=== PATIENT | male | born 1975 | race Caucasian/White ===

== ENCOUNTER 2017-12-22 06:58 | Emergency (ER) | payer BC ==
[2017-12-22] MEDS ORDERED: KETOROLAC 30 MG/ML INJ ONE (07:19)
--- NOTE | 2017-12-22 07:20 | ER ---
Nurse's Notes [facility] Name: Parrish Busby Age: 42 yrs Sex: Male : 1975 Arrival Date: 12/22/2017 Time: 06:59 Bed 6 Private MD: Diagnosis: Myalgia Presentation: 12/22 07:11 Presenting complaint: Patient states: R sided back pain that began this morning after ss taking out the trash that was heavy. Transition of care: patient was not received from another setting of care. Onset of symptoms was December 22, 2017. Risk Assessment: Do you want to hurt yourself or someone else? Patient reports no desire to harm self or others. Initial Sepsis Screen: Does the patient meet any 2 criteria? No. Patient's initial sepsis screen is negative. Does the patient have a suspected source of infection? No. Patient's initial sepsis screen is negative. Note Pt states, "I have scoliosis and I didn't want to just go straight to work this morning without getting checked out.". Care prior to arrival: None. 07:11 Method Of Arrival: Ambulatory ss 07:11 Acuity: ANDREW 4 ss Historical: - Allergies: 07:13 PENICILLINS; ss - Home Meds: 07:13 None [Active]; ss - PMHx: 07:13 scoliosis; ss - PSHx: 07:13 None; ss - Immunization history:: Adult Immunizations unknown. - Social history:: Smoking status: Patient uses tobacco products, smokes one-half pack cigarettes per day. - Ebola Screening: : Patient denies exposure to infectious person Patient denies travel to an Ebola-affected area in the 21 days before illness onset. Screenin:14 Abuse screen: Denies threats or abuse. Denies injuries from another. Nutritional ss screening: No deficits noted. Tuberculosis screening: Never had TB. Fall Risk None identified. Assessment: 07:14 General: Appears in no apparent distress. comfortable, Behavior is calm, cooperative. ss Pain: Complains of pain in right scapular area, right subscapular area, right mid back and right low back Pain currently is 8 out of 10 on a pain scale. Quality of pain is described as aching, sharp, tender, Pain began this morning after heavy lifting Is continuous, Aggravated by increased activity, repositioning. Neuro: Level of Consciousness is awake, alert, obeys commands, Oriented to person, place, time, situation, Speech is normal, Pupils are. Cardiovascular: Capillary refill < 3 seconds is brisk in bilateral fingers Patient's skin is warm and dry. Respiratory: Airway is patent Respiratory effort is even, unlabored, Respiratory pattern is regular, symmetrical, Breath sounds are clear bilaterally. GI: Patient currently denies abdominal pain, diarrhea, nausea, vomiting. : No signs and/or symptoms were reported regarding the genitourinary system. EENT: Nares are clear Oral mucosa is moist. Throat is clear. Derm: Skin is intact, is healthy with good turgor, Skin is dry, Skin is pink, warm \\T\\ dry. normal. Musculoskeletal: Circulation, motion, and sensation intact. Capillary refill < 3 seconds, is brisk, in bilateral fingers. Range of motion: intact in all extremities, Swelling absent Denies. Vital Signs: 07:13 BP 134 / 84; Pulse 89; Resp 16; Temp 98.9(TE); Pulse Ox 100% on R/A; Weight 61.23 kg; ss Height 5 ft. 7 in. (170.18 cm); Pain 8/10; 07:13 Body Mass Index 21.14 (61.23 kg, 170.18 cm) ss ED Course: 06:59 Patient arrived in ED. am2 07:06 Orquidea Rodríguez FNP-C is [facility]. kb 07:06 Nico Collins MD is Attending Physician. kb 07:12 Triage completed. ss 07:13 Arm band placed on right wrist. ss 07:14 Jaja Harmon, KAMALJIT is Primary Nurse. ss 07:14 Patient has correct armband on for positive identification. Bed in low position. Call ss light in reach. 07:24 No provider procedures requiring assistance completed. Patient did not have IV access ss during this emergency room visit. Administered Medications: 07:19 Drug: TORadol 60 mg Route: IM; Site: left gluteus; ss 07:32 Follow up: Response: No adverse reaction ss Outcome: 07:19 Discharge ordered by . kb 07:24 Condition: good ss 07:24 Discharge instructions given to patient, Instructed on discharge instructions, follow up and referral plans. medication usage, Demonstrated understanding of instructions, follow-up care, medications, Prescriptions given X 1. 07:33 Discharged to home ambulatory. ss 07:33 Patient left the ED. ss Signatures: Orquidea Rodríguez, GRAPHIC MANAGER-C GRAPHIC MANAGER-Ckb Jaja Harmon, RN RN ss Chery Stevens
--- NOTE | 2017-12-22 07:20 | EDPHYS ---
Physician Documentation [facility] Name: Parrish Busby Age: 42 yrs Sex: Male : 1975 Arrival Date: 12/22/2017 Time: 06:59 Bed 6 Private MD: ED Physician Nico Collins HPI: 12/22 07:12 This 42 yrs old Male presents to ER via Ambulatory with complaints of Back kb Pain. 07:12 The patient presents with pain that is acute. The symptoms are located in the right kb trapezius, right mid back and right low back. Onset: The symptoms/episode began/occurred this morning, at 04:30. The pain does not radiate. Associated signs and symptoms: The patient has no apparent associated signs or symptoms. The problem was sustained when lifting trash. Modifying factors: The patient symptoms are alleviated by nothing, the patient symptoms are aggravated by movement. Severity of symptoms: At their worst the symptoms were mild, in the emergency department the symptoms are unchanged. The patient has not experienced similar symptoms in the past. The patient has not recently seen a physician. States he was taking out the trash and started having back pain afterwards. Worse when he moves in certain directions so he didn't want to go to work and injure it more. . Historical: - Allergies: 07:13 PENICILLINS; ss - Home Meds: 07:13 None [Active]; ss - PMHx: 07:13 scoliosis; ss - PSHx: 07:13 None; ss - Immunization history:: Adult Immunizations unknown. - Social history:: Smoking status: Patient uses tobacco products, smokes one-half pack cigarettes per day. - Ebola Screening: : Patient denies exposure to infectious person Patient denies travel to an Ebola-affected area in the 21 days before illness onset. ROS: 07:12 Constitutional: Negative for fever, chills, and weight loss, Cardiovascular: Negative kb for chest pain, palpitations, and edema, Respiratory: Negative for shortness of breath, cough, wheezing, and pleuritic chest pain, Abdomen/GI: Negative for abdominal pain, nausea, vomiting, diarrhea, and constipation, : Negative for injury, bleeding, discharge, and swelling, MS/Extremity: Negative for injury and deformity, Skin: Negative for injury, rash, and discoloration, Neuro: Negative for headache, weakness, numbness, tingling, and seizure. 07:12 Back: Positive for pain at rest, pain with movement. Exam: 07:12 Constitutional: This is a well developed, well nourished patient who is awake, alert, kb and in no acute distress. Head/Face: Normocephalic, atraumatic. Chest/axilla: Normal chest wall appearance and motion. Nontender with no deformity. No lesions are appreciated. Cardiovascular: Regular rate and rhythm with a normal S1 and S2. No gallops, murmurs, or rubs. Normal PMI, no JVD. No pulse deficits. Respiratory: Lungs have equal breath sounds bilaterally, clear to auscultation and percussion. No rales, rhonchi or wheezes noted. No increased work of breathing, no retractions or nasal flaring. Abdomen/GI: Soft, non-tender, with normal bowel sounds. No distension or tympany. No guarding or rebound. No evidence of tenderness throughout. Skin: Warm, dry with normal turgor. Normal color with no rashes, no lesions, and no evidence of cellulitis. MS/ Extremity: Pulses equal, no cyanosis. Neurovascular intact. Full, normal range of motion. Neuro: Awake and alert, GCS 15, oriented to person, place, time, and situation. Cranial nerves II-XII grossly intact. Motor strength 5/5 in all extremities. Sensory grossly intact. Cerebellar exam normal. Normal gait. 07:12 Back: pain, that is mild, that is moderate, of the right trapezius, right mid back and right low back, ROM is normal. Vital Signs: 07:13 BP 134 / 84; Pulse 89; Resp 16; Temp 98.9(TE); Pulse Ox 100% on R/A; Weight 61.23 kg; ss Height 5 ft. 7 in. (170.18 cm); Pain 8/10; 07:13 Body Mass Index 21.14 (61.23 kg, 170.18 cm) ss MDM: 07:06 Patient medically screened. kb 07:12 Data reviewed: vital signs, nurses notes. Data interpreted: Pulse oximetry: on room air kb is 100 %. Interpretation: normal. Counseling: I had a detailed discussion with the patient and/or guardian regarding: the historical points, exam findings, and any diagnostic results supporting the discharge/admit diagnosis, the need for outpatient follow up, a family practitioner, to return to the emergency department if symptoms worsen or persist or if there are any questions or concerns that arise at home. Administered Medications: 07:19 Drug: TORadol 60 mg Route: IM; Site: left gluteus; ss 07:32 Follow up: Response: No adverse reaction ss Disposition: 12/22/17 07:19 Discharged to Home. Impression: Myalgia. - Condition is Stable. - Discharge Instructions: Muscle Pain, Adult. - Prescriptions for orphenadrine citrate 100 mg Oral Tablet Sustained Release - take 1 tablet by ORAL route 2 times per day As needed; 20 tablet. - Work release form, Medication Reconciliation Form, Thank You Letter, Antibiotic Education, Prescription Opioid Use form. - Follow up: Emergency Department; When: As needed; Reason: Worsening of condition. Follow up: Private Physician; When: 2 - 3 days; Reason: Recheck today's complaints, Continuance of care, Re-evaluation by your physician. Addendum: 12/26/2017 15:31 Co-signature as Attending Physician, Nico Collins MD. g s Signatures: Orquidea Rodríguez, CASSANDRA-C CASSANDRA-Jaja Lara RN RN Nico Ryan MD MD Corrections: (The following items were deleted from the chart) 12/22 07:33 07:19 12/22/2017 07:19 Discharged to Home. Impression: Myalgia. Condition is Stable. ss Forms are Medication Reconciliation Form, Thank You Letter, Antibiotic Education, Prescription Opioid Use. Follow up: Emergency Department; When: As needed; Reason: Worsening of condition. Follow up: Private Physician; When: 2 - 3 days; Reason: Recheck today's complaints, Continuance of care, Re-evaluation by your physician. kb
[2017-12-22 07:37] VITALS: BP 134/84; TEMP 98.9; O2SAT 100
== END 2017-12-22 07:33 | disposition home or self-care (01) ==
LOC: ER 06:58
DX: M79.1 Myalgia (principal); F17.210 Nicotine dependence, cigarettes, uncomplicated; Z88.0 Allergy status to penicillin
CPT/HCPCS: 96372; 99283

== ENCOUNTER 2018-01-18 13:35 | Emergency (ER) | payer BC ==
[2018-01-18] MEDS ORDERED: CYCLOBENZAPRINE 10 MG TAB ONE (14:28)
[2018-01-18] MEDS ORDERED: HYDROCODONE/APAP 7.5/325 MG TAB ONE (14:29)
--- NOTE | 2018-01-18 15:07 | RAD REPORT ---
EXAM DESCRIPTION: RAD - Lumbar Spine 3 Views - 01/18/2018 2:59 pm CLINICAL HISTORY: PAIN Radiculopathy COMPARISON: No comparisons FINDINGS: Vertebral body heights appear maintained. No compression fracture noted. Disc spaces are m aintained. No spondylolysis or spondylolisthesis. Mild levoscoliosis is seen involving the lumbar spine. IMPRESSION: Mild lumbar spine levoscoliosis.
--- NOTE | 2018-01-18 16:03 | EDPHYS ---
Physician Documentation [facility] Name: Parrish Busby Age: 43 yrs Sex: Male : 1975 Arrival Date: 01/18/2018 Time: 13:39 Bed 28 Private MD: None, None ED Physician Thalia Talavera HPI: 01/18 14:21 This 43 yrs old Male presents to ER via Ambulatory with complaints of Low ma2 Back Pain. 14:21 The patient presents with pain that is chronic, with no known mechanism of injury. The ma2 symptoms are located in the low back. The pain does not radiate. Onset: The symptoms/episode began/occurred suddenly, gradually, 1 day(s) ago. Associated signs and symptoms: Pertinent negatives: abdominal pain, chest pain, constipation, dysuria, fever, headache, hematuria, incontinence, nausea, numbness, tingling, urinary retention, vomiting, weakness. Severity of symptoms: At their worst the symptoms were moderate, declined IM pain medicine . The patient has experienced similar episodes in the past. Historical: - Allergies: 13:55 PENICILLINS; iw - Home Meds: 13:55 muscle relaxer [Active]; iw - PMHx: 13:55 genital warts; scoliosis; iw - PSHx: 13:55 None; iw - Immunization history:: Adult Immunizations up to date. - Social history:: Smoking status: Patient uses tobacco products, smokes one-half pack cigarettes per day, Patient/guardian denies using alcohol, street drugs, The patient lives with family. - Ebola Screening: : Patient negative for fever greater than or equal to 101.5 degrees Fahrenheit, and additional compatible Ebola Virus Disease symptoms Patient denies exposure to infectious person Patient denies travel to an Ebola-affected area in the 21 days before illness onset No symptoms or risks identified at this time. - Family history:: not pertinent. ROS: 14:21 Constitutional: Negative for fever, chills, and weight loss, ENT: Negative for injury, ma2 pain, and discharge, Cardiovascular: Negative for chest pain, palpitations, and edema, Respiratory: Negative for shortness of breath, cough, wheezing, and pleuritic chest pain, : Negative for injury, bleeding, discharge, and swelling, Skin: Negative for injury, rash, and discoloration, Neuro: Negative for headache, weakness, numbness, tingling, and seizure. 14:21 Back: Positive for pain with movement, Negative for injury or acute deformity, decreased range of motion, acute changes. 14:21 MS/extremity: Positive for 14:21 MS/extremity: Negative for acute changes, injury or acute deformity. 14:21 All other systems are negative. ma2 Exam: 14:21 Constitutional: This is a well developed, well nourished patient who is awake, alert, ma2 and in no acute distress. Head/Face: Normocephalic, atraumatic. Cardiovascular: Regular rate and rhythm with a normal S1 and S2. No gallops, murmurs, or rubs. Normal PMI, no JVD. No pulse deficits. Respiratory: Lungs have equal breath sounds bilaterally, clear to auscultation and percussion. No rales, rhonchi or wheezes noted. No increased work of breathing, no retractions or nasal flaring. Abdomen/GI: Soft, non-tender, with normal bowel sounds. No distension or tympany. No guarding or rebound. No evidence of tenderness throughout. Back: No spinal tenderness. No costovertebral tenderness. Full range of motion. 14:21 Skin: Warm, dry with normal turgor. Normal color with no rashes, no lesions, and no evidence of cellulitis. MS/ Extremity: Pulses equal, no cyanosis. Neurovascular intact. Full, normal range of motion. Neuro: Awake and alert, GCS 15, oriented to person, place, time, and situation. Cranial nerves II-XII grossly intact. Motor strength 5/5 in all extremities. Sensory grossly intact. Cerebellar exam normal. Normal gait. 14:21 Back: Straight leg raises: pain bilaterally. Vital Signs: 13:55 BP 139 / 80; Pulse 96; Resp 16; Temp 98.2; Pulse Ox 99% on R/A; Weight 61.23 kg; Height iw 5 ft. 7 in. (170.18 cm); Pain 8/10; 14:14 BP 111 / 70; Pulse 73; Resp 17; Pulse Ox 99% on R/A; kr2 13:55 Body Mass Index 21.14 (61.23 kg, 170.18 cm) iw MDM: 14:02 Patient medically screened. ma2 14:21 Differential diagnosis: arthritis, strain, fracture, sciatica, Herniated disc. Data ma2 reviewed: vital signs, nurses notes, EMS record, radiologic studies. Counseling: I had a detailed discussion with the patient and/or guardian regarding: the historical points, exam findings, and any diagnostic results supporting the discharge/admit diagnosis, the presence of at least one elevated blood pressure reading (>120/80) during this emergency department visit, the need for outpatient follow up. Response to treatment: the patient's symptoms have markedly improved after treatment. 01/18 14:21 Order name: Lumbar Spine (3 Views) XRAY; Complete Time: 15:48 ma2 Administered Medications: 14:25 Drug: Flexeril 10 mg Route: PO; kr2 15:22 Follow up: Response: No adverse reaction; Pain is decreased kr2 14:25 Drug: [place] (7.5 mg-325 mg) 1 tabs Route: PO; kr2 15:22 Follow up: Response: No adverse reaction; Pain is decreased kr2 Disposition: 01/18/18 15:55 Discharged to Home. Impression: Low back pain. - Condition is Stable. - Discharge Instructions: Back Pain, Adult. - Prescriptions for Tylenol- Codeine #3 300-30 mg Oral Tablet - take 2 tablet by ORAL route every 6 hours As needed; 30 tablet. Cyclobenzaprine 5 mg Oral Tablet - take 1 tablet by ORAL route 3 times per day As needed; 15 tablet. - Work release form, Medication Reconciliation Form, Thank You Letter, Antibiotic Education, Prescription Opioid Use form. - Follow up: Private Physician; When: Tomorrow; Reason: Continuance of care. - Problem is new. - Symptoms have improved. Signatures: Dispatcher [employer] EDMS Moraima Rosa RN RN Kiersten Peterson RN RN kr2 Thalia Talavera MD MD ma2 Corrections: (The following items were deleted from the chart) 16:11 15:55 01/18/2018 15:55 Discharged to Home. Impression: Low back pain. Condition is kr2 Stable. Forms are Medication Reconciliation Form, Thank You Letter, Antibiotic Education, Prescription Opioid Use. Follow up: Private Physician; When: Tomorrow; Reason: Continuance of care. Problem is new. Symptoms have improved. ma2
--- NOTE | 2018-01-18 16:03 | ER ---
Nurse's Notes [facility] Name: Parrish Busby Age: 43 yrs Sex: Male : 1975 Arrival Date: 01/18/2018 Time: 13:39 Bed 28 Private MD: None, None Diagnosis: Low back pain Presentation: 01/18 13:51 Presenting complaint: Patient states: has hx of scoliosis, woke up with sharp lower iw back pain above his tailbone, denies injury, pain feels different than his scoliosis pain, aggravated by movement. Transition of care: patient was not received from another setting of care. Onset of symptoms was January 18, 2018. Risk Assessment: Do you want to hurt yourself or someone else? Patient reports no desire to harm self or others. Initial Sepsis Screen: Does the patient meet any 2 criteria? No. Patient's initial sepsis screen is negative. Does the patient have a suspected source of infection? No. Patient's initial sepsis screen is negative. Care prior to arrival: None. 13:51 Method Of Arrival: Ambulatory iw 13:51 Acuity: ANDREW 4 iw Historical: - Allergies: 13:55 PENICILLINS; iw - Home Meds: 13:55 muscle relaxer [Active]; iw - PMHx: 13:55 genital warts; scoliosis; iw - PSHx: 13:55 None; iw - Immunization history:: Adult Immunizations up to date. - Social history:: Smoking status: Patient uses tobacco products, smokes one-half pack cigarettes per day, Patient/guardian denies using alcohol, street drugs, The patient lives with family. - Ebola Screening: : Patient negative for fever greater than or equal to 101.5 degrees Fahrenheit, and additional compatible Ebola Virus Disease symptoms Patient denies exposure to infectious person Patient denies travel to an Ebola-affected area in the 21 days before illness onset No symptoms or risks identified at this time. - Family history:: not pertinent. Screenin:13 Abuse screen: Denies threats or abuse. Denies injuries from another. Nutritional kr2 screening: No deficits noted. Tuberculosis screening: No symptoms or risk factors identified. Fall Risk None identified. Assessment: 14:10 General: Appears in no apparent distress. comfortable, well groomed, well developed, kr2 well nourished, Behavior is calm, cooperative, appropriate for age. Pain: Complains of pain in coccyx Pain does not radiate. Pain currently is 5 out of 10 on a pain scale. Quality of pain is described as sharp, stabbing, Pain began this morning Is continuous, Alleviated by rest, Aggravated by increased activity. Neuro: Level of Consciousness is awake, alert, obeys commands, Oriented to person, place, time, situation, Appropriate for age Reheater Helper are equal bilaterally Moves all extremities. Intact. Cardiovascular: Capillary refill < 3 seconds in bilateral fingers Patient's skin is warm and dry. Respiratory: Airway is patent Respiratory effort is even, unlabored, Respiratory pattern is regular, symmetrical. GI: Abdomen is flat, non-distended, Reports normal bowel habits. : Denies inability to void, incontinence. EENT: Oral mucosa is moist. Derm: Skin is intact, is healthy with good turgor, Skin is pink, warm \T\ dry. Musculoskeletal: Circulation, motion, and sensation intact. 15:18 Reassessment: Patient appears in no apparent distress at this time. Patient and/or kr2 family updated on plan of care and expected duration. Pain level reassessed. Patient is alert, oriented x 3, equal unlabored respirations, skin warm/dry/pink. Patient states he is only feeling the pain when he moves certain ways. Vital Signs: 13:55 BP 139 / 80; Pulse 96; Resp 16; Temp 98.2; Pulse Ox 99% on R/A; Weight 61.23 kg; Height iw 5 ft. 7 in. (170.18 cm); Pain 8/10; 14:14 BP 111 / 70; Pulse 73; Resp 17; Pulse Ox 99% on R/A; kr2 13:55 Body Mass Index 21.14 (61.23 kg, 170.18 cm) iw ED Course: 13:39 Patient arrived in ED. mr 13:39 None, None is Private Physician. mr 13:54 Triage completed. iw 13:55 Arm band placed on. iw 14:01 Thalia Talavera MD is Attending Physician. ma2 14:10 Kiersten Peterson, KAMALJIT is Primary Nurse. kr2 14:13 Patient has correct armband on for positive identification. Bed in low position. Call kr2 light in reach. Side rails up X 1. Pulse ox on. NIBP on. Door closed. Head of bed elevated. 14:59 Lumbar Spine (3 Views) XRAY In Process Unspecified. EDMS 16:10 No provider procedures requiring assistance completed. Patient did not have IV access kr2 during this emergency room visit. Administered Medications: 14:25 Drug: Flexeril 10 mg Route: PO; kr2 15:22 Follow up: Response: No adverse reaction; Pain is decreased kr2 14:25 Drug: [place] (7.5 mg-325 mg) 1 tabs Route: PO; kr2 15:22 Follow up: Response: No adverse reaction; Pain is decreased kr2 Outcome: 15:55 Discharge ordered by . ma2 16:10 Discharged to home ambulatory, with family. kr2 16:10 Condition: good 16:10 Discharge instructions given to patient, Instructed on discharge instructions, follow up and referral plans. medication usage, Demonstrated understanding of instructions, follow-up care, medications, Prescriptions given X 2. 16:11 Patient left the ED. kr2 Signatures: Dispatcher [employer] EDNE Margaret Galeana mr Moraima Rosa RN RN iw Kiersten Peterson RN RN kr2 Thalia Talavera MD MD ma2 Corrections: (The following items were deleted from the chart) 15:21 15:18 Reassessment: Patient appears in no apparent distress at this time. Patient kr2 and/or family updated on plan of care and expected duration. Pain level reassessed. Patient is alert, oriented x 3, equal unlabored respirations, skin warm/dry/pink. kr2
[2018-01-18 16:37] VITALS: TEMP 98.2; O2SAT 99
[2018-01-18 16:38] VITALS: BP 111/70
== END 2018-01-18 16:11 | disposition home or self-care (01) ==
LOC: ER 13:35
DX: M54.5 Low back pain (principal); F17.210 Nicotine dependence, cigarettes, uncomplicated; Z88.0 Allergy status to penicillin
CPT/HCPCS: 72100; 99284

== ENCOUNTER 2018-04-10 06:17 | Emergency (ER) | payer BC, SELFPAY ==
[2018-04-10] MEDS ORDERED: KETOROLAC 30 MG/ML INJ ONE (06:44)
--- NOTE | 2018-04-10 07:04 | ER ---
Nurse's Notes [facility] Name: Parrish Busby Age: 43 yrs Sex: Male : 1975 Arrival Date: 04/10/2018 Time: 06:21 Bed 6 Private MD: Diagnosis: Pain in right shoulder;Paresthesia of skin-Right Hand Presentation: 04/10 06:30 Presenting complaint: Patient states: right shoulder pain, increased with movement and ak1 rotation. pt c/o numbness down to right hand. pt stated pain is intermittent X2 days. pt stated he had to call in to work today. Transition of care: patient was not received from another setting of care. Onset of symptoms is unknown. Risk Assessment: Do you want to hurt yourself or someone else? Patient reports no desire to harm self or others. Initial Sepsis Screen: Does the patient meet any 2 criteria? No. Patient's initial sepsis screen is negative. Does the patient have a suspected source of infection? No. Patient's initial sepsis screen is negative. Care prior to arrival: None. 06:30 Method Of Arrival: Ambulatory ak1 06:30 Acuity: ANDREW 4 ak1 Triage Assessment: 06:31 General: Appears in no apparent distress. Behavior is calm, cooperative. Pain: ak1 Complains of pain in anterior aspect of right shoulder and posterior aspect of right shoulder. EENT: No signs and/or symptoms were reported regarding the EENT system. Neuro: No deficits noted. Cardiovascular: No deficits noted. Respiratory: No deficits noted. GI: No signs and/or symptoms were reported involving the gastrointestinal system. : No signs and/or symptoms were reported regarding the genitourinary system. Derm: No signs and/or symptoms reported regarding the dermatologic system. Musculoskeletal: Range of motion: intact in all extremities, pain increased with movement. Reports pain in anterior aspect of right shoulder and posterior aspect of right shoulder. Historical: - Allergies: 06:31 PENICILLINS; ak1 - Home Meds: 06:31 None [Active]; ak1 - PMHx: 06:31 genital warts; scoliosis; ak1 - PSHx: 06:31 None; ak1 - Immunization history:: Adult Immunizations not up to date. - Social history:: Smoking status: Patient uses tobacco products, smokes one-half pack cigarettes per day. - Ebola Screening: : No symptoms or risks identified at this time. Screenin:33 Abuse screen: Denies threats or abuse. Denies injuries from another. Nutritional ak1 screening: No deficits noted. Tuberculosis screening: No symptoms or risk factors identified. Fall Risk None identified. Assessment: 06:42 General: Appears in no apparent distress. uncomfortable, Behavior is calm, cooperative, jb4 appropriate for age. Pain: Complains of pain in anterior aspect of right shoulder Pain does not radiate. Pain currently is 5 out of 10 on a pain scale. at worst was 8 out of 10 on a pain scale. Quality of pain is described as stabbing, Pain began 1 day ago. Is continuous, Alleviated by rest, Aggravated by increased activity. Neuro: Level of Consciousness is awake, alert, obeys commands, Oriented to person, place, time, situation. Cardiovascular: Patient's skin is warm and dry. Respiratory: Airway is patent Respiratory effort is even, unlabored, Respiratory pattern is regular, symmetrical. GI: No signs and/or symptoms were reported involving the gastrointestinal system. : No signs and/or symptoms were reported regarding the genitourinary system. EENT: No signs and/or symptoms were reported regarding the EENT system. Derm: Skin is intact, Skin is pink, warm \T\ dry. Musculoskeletal: Circulation, motion, and sensation intact. Reports numbness in right arm pain in anterior aspect of right shoulder. Vital Signs: 06:31 BP 144 / 95; Pulse 96; Resp 18; Temp 98.7(O); Pulse Ox 99% on R/A; Weight 61.23 kg (R); ak1 Height 5 ft. 7 in. (170.18 cm) (R); Pain 8/10; 06:31 Body Mass Index 21.14 (61.23 kg, 170.18 cm) ak1 ED Course: 06:21 Patient arrived in ED. es 06:24 Isma Andrews PA is PHCP. cp 06:24 Nico Collins MD is Attending Physician. cp 06:26 Leonidas Dela Cruz, KAMALJIT is Primary Nurse. jb4 06:31 Triage completed. ak1 06:31 Arm band placed on Patient placed in an exam room, on a stretcher, on pulse oximetry, ak1 Patient notified of wait time. 06:33 Patient has correct armband on for positive identification. Bed in low position. Call ak1 light in reach. Side rails up X 1. Pulse ox on. NIBP on. 07:02 Ector Porras MD is Referral Physician. cp 07:10 No provider procedures requiring assistance completed. Patient did not have IV access jb4 during this emergency room visit. Administered Medications: 06:41 Drug: TORadol 60 mg Route: IM; Site: right gluteus; jb4 07:08 Follow up: Response: No adverse reaction; Pain is decreased jb4 Outcome: 07:03 Discharge ordered by . cp 07:10 Discharged to home ambulatory. jb4 07:10 Condition: stable 07:10 Discharge instructions given to patient, Instructed on discharge instructions, follow up and referral plans. medication usage, Demonstrated understanding of instructions, follow-up care, medications, Prescriptions given X 2. 07:11 Patient left the ED. jb4 Signatures: Marlene Coe Amber, RN RN ak1 Isma Andrews PA PA cp Bryson, James, RN RN jb4
--- NOTE | 2018-04-10 07:05 | EDPHYS ---
Physician Documentation [facility] Name: Parrish Busby Age: 43 yrs Sex: Male : 1975 Arrival Date: 04/10/2018 Time: 06:21 Bed 6 Private MD: ED Physician Nico Collins HPI: 04/10 06:35 This 43 yrs old Male presents to ER via Ambulatory with complaints of cp Shoulder Pain. 06:35 The patient or guardian complains of pain, that is acute, tenderness. right shoulder. cp Historical: - Allergies: 06:31 PENICILLINS; ak1 - Home Meds: 06:31 None [Active]; ak1 - PMHx: 06:31 genital warts; scoliosis; ak1 - PSHx: 06:31 None; ak1 - Immunization history:: Adult Immunizations not up to date. - Social history:: Smoking status: Patient uses tobacco products, smokes one-half pack cigarettes per day. - Ebola Screening: : No symptoms or risks identified at this time. ROS: 06:33 Constitutional: Negative for body aches, chills, fever, poor PO intake. cp 06:33 Eyes: Negative for injury, pain, redness, and discharge. cp 06:33 Neck: Negative for pain with movement, pain at rest, stiffness, tenderness. 06:33 Cardiovascular: Negative for chest pain, edema, palpitations. 06:33 Respiratory: Negative for cough, shortness of breath, wheezing. 06:33 Abdomen/GI: Negative for abdominal pain, nausea, vomiting, and diarrhea. 06:33 MS/extremity: Positive for pain, paresthesias, tenderness, of the anterior aspect and lateral aspect of right shoulder, Negative for injury or acute deformity, decreased range of motion. 06:33 Skin: Negative for cellulitis, rash. 06:33 Neuro: Negative for altered mental status, dizziness, weakness. 06:33 All other systems are negative. Exam: 06:35 Constitutional: The patient appears in no acute distress, alert, awake, cp non-diaphoretic, non-toxic, well developed, well nourished. 06:35 Head/Face: Normocephalic, atraumatic. cp Vital Signs: 06:31 BP 144 / 95; Pulse 96; Resp 18; Temp 98.7(O); Pulse Ox 99% on R/A; Weight 61.23 kg (R); ak1 Height 5 ft. 7 in. (170.18 cm) (R); Pain 810; 06:31 Body Mass Index 21.14 (61.23 kg, 170.18 cm) ak1 MDM: 06:31 Patient medically screened. cp 07:01 Data reviewed: vital signs, nurses notes, radiologic studies, plain films. cp 07:01 Test interpretation: by ED physician or midlevel provider: plain radiologic studies. cp 04/10 06:31 Order name: XRAY Shoulder RIGHT 2 view cp Administered Medications: 06:41 Drug: TORadol 60 mg Route: IM; Site: right gluteus; jb4 07:08 Follow up: Response: No adverse reaction; Pain is decreased jb4 Disposition: 04/10/18 07:03 Discharged to Home. Impression: Pain in right shoulder, Paresthesia of skin - Right Hand. - Condition is Stable. - Discharge Instructions: Paresthesia, Shoulder Pain. - Prescriptions for Anaprox DS 550 mg Oral Tablet - take 1 tablet by ORAL route every 12 hours As needed; 20 tablet. Cyclobenzaprine 10 mg Oral Tablet - take 1 tablet by ORAL route every 8 hours As needed no driving while taking medication; 20 tablet. - Medication Reconciliation Form, Thank You Letter, Antibiotic Education, Prescription Opioid Use, Work release form form. - Follow up: Ector Porras MD; When: 1 week; Reason: symptoms continue or worsen. - Problem is new. - Symptoms have improved. Addendum: 04/19/2018 10:25 Co-signature as Attending Physician, Nico Collins MD. g s Signatures: Dispatcher [employer] EDMA Ana Maciel RN RN ak1 Isma Andrews PA PA cp Leonidas Dela Cruz RN RN jb4 Nico Collins MD MD Corrections: (The following items were deleted from the chart) 04/10 07:11 07:03 04/10/2018 07:03 Discharged to Home. Impression: Pain in right shoulder; jb4 Paresthesia of skin - Right Hand. Condition is Stable. Forms are Medication Reconciliation Form, Thank You Letter, Antibiotic Education, Prescription Opioid Use. Follow up: Ector Porras; When: 1 week; Reason: symptoms continue or worsen. Problem is new. Symptoms have improved. cp
--- NOTE | 2018-04-10 11:09 | RAD REPORT ---
EXAM DESCRIPTION: RAD - Shoulder Right 2 View - 04/10/2018 7:15 am CLINICAL HISTORY: Pain;Numbness/tingling COMPARISON: No comparisons FINDINGS: Mild degenerative changes involve the AC joint. No fracture or dislocation seen. No aggres sive marrow lesion.
[2018-04-10 14:31] VITALS: BP 144/95; TEMP 98.7; O2SAT 99
== END 2018-04-10 07:11 | disposition home or self-care (01) ==
LOC: ER 06:17
DX: M25.511 Pain in right shoulder (principal); M25.811 Other specified joint disorders, right shoulder; R20.2 Paresthesia of skin; F17.210 Nicotine dependence, cigarettes, uncomplicated
CPT/HCPCS: 96372; 99283

== ENCOUNTER 2019-04-01 05:50 | Emergency (ER) | payer SELFPAY ==
[2019-04-01] MEDS ORDERED: KETOROLAC 30 MG/ML INJ ONE (07:27)
--- NOTE | 2019-04-01 07:50 | EDPHYS ---
Physician Documentation [facility] Name: Parrish Busby Age: 44 yrs Sex: Male : 1975 Arrival Date: 04/01/2019 Time: 05:54 Bed 17 Private MD: ED Physician Isma Guardado HPI: 04/01 06:29 This 44 yrs old Male presents to ER via Ambulatory with complaints of jmm Shoulder Pain. 06:29 The patient or guardian complains of pain. Onset: The symptoms/episode began/occurred jmm gradually, yesterday. Modifying factors: the symptoms are alleviated by remaining still, The symptoms are aggravated by movement. This is a 44 year old male with a history of scoliosis that presents to the ED with complaints of right shoulder pain beginning this morning. Patient states he was performing heavy lifting yesterday with mild pain afterwards to the right anterior shoulder. Patient states having decreased sensation in his right hand this morning with more intense shoulder pain. Denies weakness to his hand. . Historical: - Allergies: 06:10 PENICILLINS; - Home Meds: 06:10 None [Active]; - PMHx: 06:10 genital warts; scoliosis; - PSHx: 06:10 None; - Immunization history:: Adult Immunizations not up to date. - Social history:: Smoking status: Patient/guardian denies using tobacco. - Ebola Screening: : Patient negative for fever greater than or equal to 101.5 degrees Fahrenheit, and additional compatible Ebola Virus Disease symptoms Patient denies exposure to infectious person. ROS: 06:29 Constitutional: Negative for fever, chills, and weight loss, Cardiovascular: Negative jmm for chest pain, palpitations, and edema, Respiratory: Negative for shortness of breath, cough, wheezing, and pleuritic chest pain. 06:29 MS/extremity: Positive for injury or acute deformity, pain. 06:29 All other systems are negative. Exam: 06:29 Constitutional: This is a well developed, well nourished patient who is awake, alert, jmm and in no acute distress. Head/Face: atraumatic. Eyes: EOMI, no conjunctival erythema appreciated ENT: Moist Mucus Membranes Neck: Trachea midline, Supple Chest/axilla: Normal chest wall appearance and motion. Cardiovascular: Regular rate and rhythm. No edema appreciated Respiratory: Normal respirations, no respiratory distress appreciated Abdomen/GI: Non distended, soft Back: Normal ROM Skin: General appearance color normal 06:29 Musculoskeletal/extremity: right anterior shoulder pain on palpation, full body masker strength, NVI. 06:29 Skin: Appearance: Color: normal in color. 06:29 Neuro: Orientation: is normal, Mentation: is normal, Memory: is normal. 06:29 Psych: Behavior/mood is pleasant, cooperative. Vital Signs: 06:13 BP 115 / 73; Pulse 75; Resp 18; Temp 98.8; Pulse Ox 100% ; Weight 63.5 kg; Height 5 ft. wh 7 in. (170.18 cm); 08:06 BP 120 / 81; Pulse 68; Resp 18; Pulse Ox 99% on R/A; Pain 5/10; em 06:13 Body Mass Index 21.93 (63.50 kg, 170.18 cm) wh MDM: 06:06 Patient medically screened. [facility] 06:35 Data reviewed: vital signs, nurses notes. ivette 07:47 Counseling: I had a detailed discussion with the patient and/or guardian regarding: the [facility] historical points, exam findings, and any diagnostic results supporting the discharge/admit diagnosis, radiology results, the need for outpatient follow up, to return to the emergency department if symptoms worsen or persist or if there are any questions or concerns that arise at home. ED course: No fracture appreciated. Sensory deficit appears to follow ulnar distribution. Patient is advised to follow up with ortho for reevaluation. Patient is otherwise given strict return precautions. Patient understood and agrees with the plan of care. . 04/01 06:14 Order name: Shoulder Right (2 View) XRAY [facility] Administered Medications: 07:30 Drug: Ketorolac 30 mg Route: IM; Site: right deltoid; em 07:51 Follow up: Response: No adverse reaction; Pain is decreased em Disposition: 04/01/19 07:50 Discharged to Home. Impression: Pain in right shoulder. - Condition is Stable. - Discharge Instructions: Shoulder Range of Motion Exercises, Shoulder Pain, [id number]. - Prescriptions for Ibuprofen 600 mg Oral Tablet - take 1 tablet by ORAL route every 6 hours As needed take with food; 30 tablet. - Medication Reconciliation Form, Thank You Letter, Antibiotic Education, Prescription Opioid Use form. - Follow up: Omar Eldridge MD; When: 2 - 3 days; Reason: Recheck today's complaints, Continuance of care, Re-evaluation by your physician. Signatures: Dispatcher [employer] Isma Delacruz MD MD cha Mickail, Joel, PA PA jmm Munoz, Edgar, COMPUTER SALESPERSON RETAIL COMPUTER SALESPERSON RETAIL em Adan Gallegos Corrections: (The following items were deleted from the chart) 08:07 07:50 04/01/2019 07:50 Discharged to Home. Impression: Pain in right shoulder. em Condition is Stable. Forms are Medication Reconciliation Form, Thank You Letter, Antibiotic Education, Prescription Opioid Use. Follow up: Dr. Omar Eldridge; When: 2 - 3 days; Reason: Recheck today's complaints, Continuance of care, Re-evaluation by your physician. ivette
--- NOTE | 2019-04-01 07:50 | ER ---
Nurse's Notes [facility] Name: Parrish Busby Age: 44 yrs Sex: Male : 1975 Arrival Date: 04/01/2019 Time: 05:54 Bed 17 Private MD: Diagnosis: Pain in right shoulder Presentation: 04/01 06:08 Presenting complaint: Patient states: C/O Right shoulder pain that started last night. Pt states he was moving furniture yesterday when it started, now C/O limited movement, numbness in right hand and shoulder pain. Transition of care: patient was not received from another setting of care. Onset of symptoms was April 01, 2019. Risk Assessment: Do you want to hurt yourself or someone else? Patient reports no desire to harm self or others. Initial Sepsis Screen: Does the patient meet any 2 criteria? No. Patient's initial sepsis screen is negative. Does the patient have a suspected source of infection? No. Patient's initial sepsis screen is negative. Care prior to arrival: None. 06:08 Method Of Arrival: Ambulatory 06:08 Acuity: ANDREW 4 Historical: - Allergies: 06:10 PENICILLINS; - Home Meds: 06:10 None [Active]; - PMHx: 06:10 genital warts; scoliosis; - PSHx: 06:10 None; - Immunization history:: Adult Immunizations not up to date. - Social history:: Smoking status: Patient/guardian denies using tobacco. - Ebola Screening: : Patient negative for fever greater than or equal to 101.5 degrees Fahrenheit, and additional compatible Ebola Virus Disease symptoms Patient denies exposure to infectious person. Screenin:12 Abuse screen: Denies threats or abuse. Denies injuries from another. Nutritional screening: No deficits noted. Tuberculosis screening: No symptoms or risk factors identified. Fall Risk None identified. Assessment: 06:10 General: Appears in no apparent distress. Behavior is calm, cooperative, appropriate for age. Pain: Complains of pain in RIght shoulder Pain does not radiate. Pain currently is 2 out of 10 on a pain scale. at worst was 6 out of 10 on a pain scale. Pain began 1 day ago. Aggravated by movement. Neuro: Level of Consciousness is awake, alert, obeys commands, Oriented to person, place, time, situation, Appropriate for age. Cardiovascular: Capillary refill < 3 seconds. Respiratory: Airway is patent Respiratory effort is even, unlabored, Respiratory pattern is regular, symmetrical. GI: Abdomen is flat, non-distended. : No signs and/or symptoms were reported regarding the genitourinary system. EENT: No signs and/or symptoms were reported regarding the EENT system. Derm: Skin is intact, is healthy with good turgor, Skin is pink, warm \T\ dry. normal. Musculoskeletal: Circulation, motion, and sensation intact. 07:49 Reassessment: Patient appears in no apparent distress at this time. Patient and/or em family updated on plan of care and expected duration. Pain level reassessed. Patient is alert, oriented x 3, equal unlabored respirations, skin warm/dry/pink. pending X-ray results Patient states feeling better. Vital Signs: 06:13 BP 115 / 73; Pulse 75; Resp 18; Temp 98.8; Pulse Ox 100% ; Weight 63.5 kg; Height 5 ft. wh 7 in. (170.18 cm); 08:06 BP 120 / 81; Pulse 68; Resp 18; Pulse Ox 99% on R/A; Pain 5/10; em 06:13 Body Mass Index 21.93 (63.50 kg, 170.18 cm) ED Course: 05:54 Patient arrived in ED. ag3 05:55 Adan Gallegos is Primary Nurse. 06:04 Phi Baker PA is PHCP. [facility] 06:04 Isma Guardado MD is Attending Physician. [facility] 06:09 Triage completed. 06:12 Arm band placed on right wrist. 06:12 Patient has correct armband on for positive identification. Bed in low position. Call light in reach. Side rails up X 1. Pulse ox on. NIBP on. 07:33 Shoulder Right (2 View) XRAY In Process Unspecified. EDMS 07:49 Omar Eldridge MD is Referral Physician. [facility] 08:06 No provider procedures requiring assistance completed. Patient did not have IV access em during this emergency room visit. Administered Medications: 07:30 Drug: Ketorolac 30 mg Route: IM; Site: right deltoid; em 07:51 Follow up: Response: No adverse reaction; Pain is decreased em Outcome: 07:50 Discharge ordered by MD. steele 08:06 Discharged to home ambulatory. em 08:06 Condition: good 08:06 Discharge instructions given to patient, Instructed on discharge instructions, follow up and referral plans. medication usage, Demonstrated understanding of instructions, follow-up care, medications, Prescriptions given X 1. 08:07 Patient left the ED. em Signatures: Dispatcher [employer] EDPhi Holm PA PA jmm Munoz, Edgar, TAPE CONTROLLED MACHINE STITCHER TAPE CONTROLLED MACHINE STITCHER Adan Barger Alice ag3
[2019-04-01 08:13] VITALS: TEMP 98.8
[2019-04-01 08:14] VITALS: BP 120/81; O2SAT 99
--- NOTE | 2019-04-01 08:29 | RAD REPORT ---
EXAM DESCRIPTION: RAD - Shoulder Right 2 View - 04/01/2019 7:32 am CLINICAL HISTORY: Right shoulder pain FINDINGS: No fracture or dislocation is seen. Mild to moderate narrowing of the AC joint.
== END 2019-04-01 08:07 | disposition home or self-care (01) ==
LOC: ER 05:50
DX: M25.511 Pain in right shoulder (principal); Z88.0 Allergy status to penicillin
CPT/HCPCS: 96372; 99284

== ENCOUNTER 2019-11-21 06:03 | Emergency (ER) | payer BC ==
--- NOTE | 2019-11-21 08:23 | EDPHYS ---
Physician Documentation [facility] Name: Parrish Busby Age: 44 yrs Sex: Male : 1975 Arrival Date: 11/21/2019 Time: 06:05 Bed 9 Private MD: ED Physician Hever Lambert HPI: 11/20 08:12 This 44 yrs old Male presents to ER via Ambulatory with complaints of Finger cp Injury. 08:13 The patient or guardian reports injury, pain. The complaints affect the proximal cp phalanx right index finger. Context: resulted from a crush injury, finger got caught between cooler and piece of 4 by 4 wood. Onset: The symptoms/episode began/occurred 2 day(s) ago. Associated signs and symptoms: Pertinent negatives: cyanosis distally, decreased sensation distally. Historical: - Allergies: 06:39 PENICILLINS; dm5 ROS: 08:14 MS/extremity: Positive for pain, tenderness, of the right index finger, Negative for cp decreased range of motion, deformity, paresthesias. 08:14 Skin: Negative for rash. 08:14 All other systems are negative. Exam: 08:15 Constitutional: The patient appears in no acute distress, alert, awake, well developed, cp well nourished. 08:15 Musculoskeletal/extremity: Extremities: grossly normal except: noted in the proximal phalanx right index finger: pain, swelling, tenderness, There is no evidence of decreased ROM, deformity, ROM: full active range of motion, in the right index finger, limited active range of motion due to pain, in the right index finger, Perfusion: the extremity is normally perfused throughout, Sensation intact. Tendon exam: specific tendon testing normal through active and passive range of motion 08:15 Skin: cellulitis, is not appreciated, no rash present. Procedures: 08:45 Splinting: Splint applied to right index finger using finger splint, applied by nurse. cp Examined by me, post splint application: neurovascular intact, Patient tolerated well. MDM: 08:10 Patient medically screened. cp 08:15 Differential diagnosis: dislocation, closed fracture, contusion. cp 08:19 Data reviewed: vital signs, nurses notes, radiologic studies, plain films. Test cp interpretation: by ED physician or midlevel provider: xrays of right hand negative for fracture. Counseling: I had a detailed discussion with the patient and/or guardian regarding: the historical points, exam findings, and any diagnostic results supporting the discharge/admit diagnosis, radiology results, to return to the emergency department if symptoms worsen or persist or if there are any questions or concerns that arise at home. 11/20 06:40 Order name: Hand Right 3 View XRAY dm5 11/20 08:19 Order name: Splint - Finger; Complete Time: 08:26 cp Administered Medications: 08:38 Drug: Ibuprofen 800 mg Route: PO; ss 08:38 Follow up: Response: No adverse reaction; Medication administered at discharge. Disposition: 09:00 Chart complete. cp 16:38 Co-signature as Attending Physician, Hever Lambert MD I agree with the assessment and tw4 plan of care. Disposition: 11/21/19 08:22 Discharged to Home. Impression: Crushing injury of right index finger. - Condition is Stable. - Discharge Instructions: Crush Injury of the Hand. - Prescriptions for Naprosyn 500 mg Oral Tablet - take 1 tablet by ORAL route 2 times per day take with food; 20 tablet. - Work release form, Medication Reconciliation Form, Thank You Letter, Antibiotic Education, Prescription Opioid Use form. - Follow up: Private Physician; When: 2 - 3 days; Reason: Worsening of condition. - Problem is new. - Symptoms have improved. Signatures: Dispatcher [employer] Kelly Colindres, RN RN dm5 Jaja Harmon RN RN Isma Quevedo, ZACHARY PA Hever Richard MD MD tw4 Corrections: (The following items were deleted from the chart) 08:46 08:22 11/21/2019 08:22 Discharged to Home. Impression: Crushing injury of right index ss finger. Condition is Stable. Forms are Medication Reconciliation Form, Thank You Letter, Antibiotic Education, Prescription Opioid Use. Follow up: Private Physician; When: 2 - 3 days; Reason: Worsening of condition. Problem is new. Symptoms have improved. cp
--- NOTE | 2019-11-21 08:23 | ER ---
Nurse's Notes [facility] Name: Parrish Busby Age: 44 yrs Sex: Male : 1975 Arrival Date: 11/21/2019 Time: 06:05 Bed 9 Private MD: Diagnosis: Crushing injury of right index finger Presentation: 11/20 06:38 Chief complaint: Patient states: smashed finger on Thursday and it is still bothering dm5 me. Right index finger noted to be swollen. Pain rated at 5/10 at this time. Coronavirus screen: Proceed with normal triage. Patient denies a cough. Patient denies shortness of breath or difficulty breathing. Patient denies measured and/or subjective temperature greater than 100.4F prior to today's visit. Patient denies travel on a cruise ship or to a country the [facility] currently lists as an affected area. Ebola Screen: Patient negative for fever greater than or equal to 101.5 degrees Fahrenheit, and additional compatible Ebola Virus Disease symptoms Patient denies exposure to infectious person. Patient denies travel to an Ebola-affected area in the 21 days before illness onset. No symptoms or risks identified at this time. Onset of symptoms was November 19, 2019. 06:38 Method Of Arrival: Ambulatory dm5 06:38 Acuity: ANDREW 4 dm5 Historical: - Allergies: 06:39 PENICILLINS; dm5 Screenin:45 Abuse screen: Denies threats or abuse. Denies injuries from another. Nutritional ss screening: No deficits noted. Tuberculosis screening: Never had TB. Fall Risk None identified. ED Course: 06:05 Patient arrived in ED. ds1 06:39 Triage completed. dm5 08:01 Hand Right 3 View XRAY In Process Unspecified. EDMS 08:08 Isma Andrews PA is PHCP. cp 08:08 Hever Lambert MD is Attending Physician. cp 08:25 Jaja Harmon RN is Primary Nurse. ss 08:44 No provider procedures requiring assistance completed. Patient did not have IV access ss during this emergency room visit. 08:45 Patient has correct armband on for positive identification. Bed in low position. Call ss light in reach. Administered Medications: 08:38 Drug: Ibuprofen 800 mg Route: PO; ss 08:38 Follow up: Response: No adverse reaction; Medication administered at discharge. ss Outcome: 08:22 Discharge ordered by . cp 08:44 Discharged to home ambulatory. 08:44 Condition: good 08:44 Discharge instructions given to patient, Instructed on discharge instructions, follow up and referral plans. medication usage, Demonstrated understanding of instructions, follow-up care, medications, splint care. 08:46 Patient left the ED. Signatures: Dispatcher [employer] Kelly Colindres RN RN dm5 Betty Arnett ds1 Jaja Harmon RN RN ss Isma Andrews, PA PA cp
[2019-11-21] MEDS ORDERED: IBUPROFEN 400 MG TAB ONE (08:37)
--- NOTE | 2019-11-21 09:06 | RAD REPORT ---
EXAM DESCRIPTION: RAD - Hand Right 3 View - 11/21/2019 8:00 am CLINICAL HISTORY: Right hand pain status post injury FINDINGS: Old fracture fifth metacarpal No acute fracture or dislocation seen
== END 2019-11-21 08:46 | disposition home or self-care (01) ==
LOC: ER 06:03
DX: S67.190A Crushing injury of right index finger, initial encounter (principal); W23.0XXA Caught, crushed, jammed, or pinched between moving objects, initial encounter; Y93.9 Activity, unspecified; Y92.9 Unspecified place or not applicable; Z88.0 Allergy status to penicillin
CPT/HCPCS: 99283

== ENCOUNTER 2021-10-04 09:00 | Day surgery (SDC) | payer BC ==
[2021-10-04 09:44] LABS: Absolute Lymphocytes (CBC) 1.5 K/uL (0.7-4.9); Hematocrit 43.4 % (39.6-49.0); Lymphocytes % 38.5 % (15.3-44.8); MPV 8.5 fL (7.6-11.3); RBC Red Blood Cell Count 4.38 M/uL (4.33-5.43)
[2021-10-04] MEDS ORDERED: Ringers Lactate 1,000 ML IV ONE ×2 (09:53→12:08)
[2021-10-04 10:03] LABS: Potassium 3.9 mmol/L (3.5-5.1)
[2021-10-04] MEDS ORDERED: CEFAZOLIN SODIUM 1 GM/VIAL ONE (10:03)
--- NOTE | 2021-10-04 10:23 | RAD REPORT ---
EXAM DESCRIPTION: Alcides Cheatham And Fei (2 Views)10/04/2021 9:42 am CLINICAL HISTORY: Preop COMPARISON: 2017 FINDINGS: The lungs appear clear of acute infiltrate. The heart is normal size. Moderate to marked scoliosis involves the spine IMPRESSION: No acute abnormalities displayed
[2021-10-04] MEDS ORDERED: propofoL 200 MG/20 ML VIAL IV ONE (10:36)
[2021-10-04] MEDS ORDERED: dexAMETHasone 10 MG/ML VIAL ONE (10:36)
[2021-10-04] MEDS ORDERED: KETOROLAC 30 MG/ML INJ ONE (10:36)
[2021-10-04] MEDS ORDERED: KETAMINE HCL 500 MG/5 ML VIAL ONE (10:36)
[2021-10-04] MEDS ORDERED: LIDOCAINE 2% MPF 5 ML VIAL ONE (10:36)
[2021-10-04] MEDS ORDERED: ONDANSETRON 4 MG/2 ML VIAL ONE (10:37)
[2021-10-04] MEDS ORDERED: MIDAZOLAM HCL 2 MG/2 ML INJ ONE (10:40)
[2021-10-04] MEDS ORDERED: FENTANYL CITR 100 MCG/2 ML ONE (10:40)
[2021-10-04] MEDS ORDERED: BUPIVACA 0.5%/EPI 0.0005%/PF 30 ML VIAL ONE (10:47)
[2021-10-04] MEDS ORDERED: BUPIVACA 0.5%/EPI 0.0005%/PF 10 ML VIAL IJ ONE ×3 (11:16)
--- NOTE | 2021-10-04 11:40 | P.OP ---
Preoperative diagnosis: Internal and External Inflammed Anal Hemorrhoid Postoperative diagnosis: Internal and External Inflammed Anal Hemorrhoid Primary procedure: Exam under anesthesia Secondary procedure: Excision of Internal and External Inflammed Anal Hemorrhoids Anesthesia: GETA + Local Estimated blood loss: <5cc Specimen: hemorrhoids Findings: enlarged Internal and External Inflammed Anal Hemorrhoids Complications: None Transferred to: Recovery Room Condition: Good
[2021-10-04 13:41] VITALS: BP 151/89; TEMP 97.4; O2SAT 99
--- NOTE | 2021-10-04 17:57 | EKG ---
Test Date: 2021-10-04 Test Time: 09:18:47 Nat Instructor: MEASUREMENT RESULTS: Intervals: Rate: 63 IN: 148 QRSD: 100 QT: 412 QTc: 421 Jackson: P: 66 IN: 148 QRS: 68 T: 64 INTERPRETIVE STATEMENTS: Normal sinus rhythm Minimal voltage criteria for LVH, may be normal variant Borderline ECG Compared to ECG 12/15/2006 06:56:57 Left ventricular hypertrophy now present Electronically Signed On 10-04-21 17:56:30 CDT by Live [facility]
--- NOTE | 2021-10-04 22:51 | OP ---
Date of Procedure: 10/04/2021 Surgeon: Sanket Claudio MD, Preoperative Diagnosis: Internal and external inflamed anal hemorrhoids. Postoperative Diagnosis: Internal and external inflamed anal hemorrhoids. Procedures Performed: 1.Exam under anesthesia. 2.Excision of internal and external inflamed anal hemorrhoids. Anesthesia: General endotracheal plus local with 0.5% Marcaine with epinephrine. Estimated Blood Loss: Less than 5 cc. Specimen: Hemorrhoids. Findings: Enlarged internal and external anal hemorrhoids along the left posterior column. Complications: None. Disposition: The patient transferred to recovery room in good condition. Procedure In Detail: After informed was obtained, the patient was brought to the operating room, pre pped and draped in the usual sterile fashion. After adequate anesthesia was achieved, an exam under anesthesia was performed. Internal and external anal hemorrhoids were noted on the left lateral colu mn and posterior position, quite enlarged. Dilated with inflammatory changes evident consistent with previous rupture and significant inflammatory changes with possible infectious component. As such, I scored the external aspect of the mucosa circumferentially around to combine the internal and exter nal anal hemorrhoid and the overlying mucosa. I then used the LigaSure device to take the hemorrhoid out while sparing the muscle underneath with careful dissection. After this, the hemorrhoids were r emoved and sent off for pathologic examination. I then irrigated the area copiously and reapproximat ed the anorectal mucosa using interrupted 3-0 chromic suture in an interrupted fashion and a Gelfoam was then placed in the anal canal. The patient tolerated the procedure well without evidence of comp lication and transferred to PACU in good condition. All counts were correct at the end of the case. AIDEN/TRACIE Voice ID: [id number] Report ID: [id number]
== END 2021-10-04 13:33 | disposition home or self-care (01) ==
LOC: OR 09:00
PROVIDERS: ATTEND Surgery
PROC: 06BY0ZC Excision of Hemorrhoidal Plexus, Open Approach (ICD-10-PCS; principal; 2021-10-04 11:30)
DX: K64.4 Residual hemorrhoidal skin tags (principal); Z20.822 Contact with and (suspected) exposure to COVID-19
CPT/HCPCS: 93005; 85025; 80048; 36415; 88304; 71046; 46260; U0003; J2704; J2250; J3010; J1100; J7120 ×2; J2405; J0690